=== PATIENT | male | born 1945 | race American Indian/Alaskan Native ===

== ENCOUNTER → 2018-06-28 | Outpatient (CLI) | payer MEDICARE ==
--- NOTE | 2018-06-28 20:59 | Ultrasound Report ---
FINAL REPORT PROCEDURE: US ABDOMEN COMPLETE TECHNIQUE: Real-time sonography in multiple planes of the abdomen was performed with image documentation. CPT 71438 HISTORY: THROMBOVYTOPENIA COMPARISON: No prior studies are available for comparison. FINDINGS: Liver: Normal size and echotexture with no evidence of cystic or solid mass lesions. Gallbladder: Well distended with normal outlines are normal wall thickness. A few small echogenic foci are noted in the gallbladder neck without any shadowing measuring above 5 millimeters.. There are no pericholecystic collections. Intrahepatic bile ducts: Normal. Extrahepatic bile ducts: Common duct is 5 millimeters in caliber. Pancreas: Visualized pancreatic head and body demonstrate normal echotexture. Aorta: Proximal abdominal aorta measures 1.7 centimeters in diameter.. IVC: Visualized portions appear normal. RIGHT kidney: Normal echotexture. No focal renal mass, calculus, or hydronephrosis. Length: 9 x 5 x 4cm. LEFT kidney: Normal echotexture. No focal renal mass, calculus, or hydronephrosis . Length: 9 x 4 x 3.5cm. Spleen: Normal size and echotexture. No focal lesions. Intraperitoneal fluid: None . Other: None . IMPRESSION: Small echogenic foci in the gallbladder neck are suspicious for calculi. There is no evidence of any cholecystitis. Otherwise negative study..
== END | disposition home or self-care (01) ==
LOC: US 11:36
PROVIDERS: ATTEND Internal Medicine Hematology & Oncology
DX: K82.8 Other specified diseases of gallbladder (principal); I25.10 Atherosclerotic heart disease of native coronary artery without angina pectoris; Z88.0 Allergy status to penicillin; Z88.7 Allergy status to serum and vaccine; Z91.018 Allergy to other foods; Z87.891 Personal history of nicotine dependence
CPT/HCPCS: 76700

== ENCOUNTER 2020-01-11 18:08 | Emergency (ER) | payer MEDICARE ==
--- NOTE | 2020-01-11 19:40 | Emergency Department Report ---
<SARITHA RODRIGUEZ - Last Filed: 01/12/20 02:01> ED Altered Mental Status HPI - General Stated Complaint: COMBATIVE/BEHAVIOR Time Seen by Provider: 01/11/20 19:04 Source: RN/MD - History of Present Illness Initial Comments: Patient is a 74-year-old male with a history of dementia who presents for combative behavior and altered mental status. EMS reported to nursing staff that the patient's and children called 911. They told EMS that the patient had become very combative and confused. The EMS sheet from Zachariah Garc[facility] of [facility] emergency service Med1 states that subject appeared to be "upset, agitated, confused." It also states that he made threats to harm others. There is no one with the patient upon entering exam room. I attempted to call patient's with the number provided in the chart and there was no answer. Patient is currently calm and cooperative. He does appear to be confused but unsure if this is patient's baseline. pt is currently on hospice with [facility]. He is a DNR. he has a hx of prostate CA, CHF, CAD. - Related Data Home Medications Medication Instructions Recorded Confirmed Last Taken Adult Low Dose Aspirin EC 81 mg PO DAILY 09/12/15 09/12/15 09/06/15 Digoxin [Digox] PO DAILY 09/12/15 09/12/15 09/10/15 Gabapentin [Neurontin] TID 09/12/15 09/12/15 09/11/15 Oxycodone HCl [Oxycontin 20mg ER] TID 09/12/15 09/12/15 09/10/15 Silodosin [Rapaflo] DAILY 09/12/15 09/12/15 09/11/15 Temazepam QHS 09/12/15 09/12/15 09/11/15 lisinopriL [Lisinopril] PO DAILY 09/12/15 09/12/15 09/10/15 Allergies Allergy/AdvReac Type Severity Reaction Status Date / Time penicillin Allergy Unknown Unverified 05/21/15 14:06 Tetanus Vaccines and Toxoid Allergy Unknown Unverified 05/21/15 14:06 [Tetanus Vaccines & Toxoid] MUSHROOMS Allergy Unknown Uncoded 05/21/15 14:07 ED Review of Systems Comment: Unobtainable due to pts medical conditions ED Past Medical Hx - Social History Smoking Status: Current Some Day Smoker - Medications Home Medications: Home Medications Medication Instructions Recorded Confirmed Last Taken Type Adult Low Dose Aspirin EC 81 mg PO DAILY 09/12/15 09/12/15 09/06/15 History Digoxin [Digox] PO DAILY 09/12/15 09/12/15 09/10/15 History Gabapentin [Neurontin] TID 09/12/15 09/12/15 09/11/15 History Oxycodone HCl [Oxycontin 20mg ER] TID 09/12/15 09/12/15 09/10/15 History Silodosin [Rapaflo] DAILY 09/12/15 09/12/15 09/11/15 History Temazepam QHS 09/12/15 09/12/15 09/11/15 History lisinopriL [Lisinopril] PO DAILY 09/12/15 09/12/15 09/10/15 History ED Physical Exam - General General appearance: alert, in no apparent distress - Head Head exam: Present: atraumatic, normocephalic - Eye Eye exam: Present: normal appearance, PERRL, EOMI - ENT ENT exam: Present: mucous membranes moist - Respiratory Respiratory exam: Present: normal lung sounds bilaterally, other (prior healed sternotomy scar). Absent: respiratory distress, wheezes, rales, rhonchi, stridor, chest wall tenderness, accessory muscle use, decreased breath sounds, prolonged expiratory - Cardiovascular Cardiovascular Exam: Present: regular rate, normal rhythm, normal heart sounds. Absent: systolic murmur, diastolic murmur, rubs, gallop - GI/Abdominal GI/Abdominal exam: Present: soft, normal bowel sounds. Absent: distended, tenderness, guarding, rebound, rigid - Neurological Exam Neurological exam: Present: other (alert to himself and his date of , otherwise not oriented, unsure of pts baseline, he does not appropriately answer questions) - Psychiatric Psychiatric exam: Present: normal affect, normal mood - Skin Skin exam: Present: warm, dry, intact - Lab Data Result diagrams: 01/11/20 19:26 01/11/20 19:26 01/11/20 23:07 V paced rhythm at 79 bpm no STEMI - Radiology Data Radiology results: report reviewed CT BRAIN: 01/11/2020 INDICATION / CLINICAL INFORMATION: AMS. COMPARISON: None available. FINDINGS: BRAIN/INTRACRANIAL STRUCTURES: Unenhanced CT images of the brain demonstrate no evidence of acute intracranial abnormality. Ventricles and sulci are prominent in size, consistent with diffuse cerebral atrophy. There is no evidence of acute ischemic injury, hemorrhage, or mass. There are no abnormal extra- axial fluid collections. EXTRACRANIAL STRUCTURES: Unremarkable. IMPRESSION: No acute abnormality. All CT scans at this location are performed using dose reduction to ALARA by means of automated exposure control. Signer Name: Juwan Braun MD Signed: 01/11/2020 9:07 PM Workstation Name: [id number] Transcribed By: ANA M Dictated By: Juwan Braun MD Electronically Authenticated By: Juwan Braun MD Signed Date/Time: 01/11/202106 DD/ 04 TD/TT: Chest single view INDICATION: Dyspnea IMPRESSION: Cardiomegaly with trace interstitial edema, no significant pleural effusion. Signer Name: Kirill Seals MD Signed: 01/11/2020 7:57 PM Workstation Name: [id number] Transcribed By: MICHELLE Dictated By: Kirill Seals MD Electronically Authenticated By: Kirill Seals MD Signed Date/Time: 01/11/201956 DD/ 56 TD/TT: - Medical Decision Making Patient is a 74-year-old male with a history of dementia who presents for combative behavior and altered mental status. EMS reported to nursing staff that the patient's and children called 911. They told EMS that the patient had become very combative and confused. The EMS sheet from Zachariah Garc[facility] of [facility] emergency service Med1 states that subject appeared to be "upset, agitated, confused." It also states that he made threats to harm others. There is no one with the patient upon entering exam room. I attempted to call patient's with the number provided in the chart and there was no answer. Patient is currently calm and cooperative. He does appear to be confused but u nsure if this is patient's baseline. pt is currently on hospice with [facility]. He is a DNR. he has a hx of prostate CA, CHF, CAD. Vitals are normal. EKG with V paced rhythm. Labs with mildly elevated AST, mildly elevated alk phos, mildly elevated bilirubin. According to previous records, patient has seen GI, he also drinks alcohol according to documentation. Blood alcohol, acetaminophen level, salicylate level, all within normal limits. UA is within normal limits. CT head with no acute process. Chest x-ray Cardiomegaly with trace interstitial edema, no significant pleural effusion. Mental health consult placed, possible candidate for admission to [facility] psych Case management consult placed, possible need for placement in a facility Patient does not have a medical emergency at this time preventing mental health or case management consultations or transfers to facilities as deemed appropriate ED Disposition Clinical Impression: Combative behavior, Confusion Dementia Qualifiers: Dementia type: unspecified type Dementia behavioral disturbance: without be havioral disturbance Qualified Code(s): F03.90 - Unspecified dementia without behavioral disturbance Disposition: - TO HOME OR SELFCARE Condition: Stable Referrals: NELI MCNAMARA JR, MD [Primary Care Provider] - 3-5 Days <KIEL MCGUIRE - Last Filed: 01/12/20 12:49> ED Review of Systems ROS: Stated complaint: COMBATIVE/BEHAVIOR Other details as noted in HPI ED Course Vital Signs 01/11/20 01/11/20 01/11/20 19:12 19:31 20:00 Temperature Pulse Rate 74 77 Respiratory 14 18 Rate Blood Pressure 148/87 148/87 123/56 Blood Pressure [Right] O2 Sat by Pulse 99 99 Oximetry 01/11/20 01/11/20 01/11/20 20:30 20:31 21:30 Temperature Pulse Rate 78 Respiratory 18 14 Rate Blood Pressure 123/56 123/56 Blood Pressure [Right] O2 Sat by Pulse 99 99 88 Oximetry 01/11/20 01/11/20 01/11/20 22:01 22:31 23:00 Temperature Pulse Rate 88 79 80 Respiratory 15 21 16 Rate Blood Pressure 123/56 123/56 150/84 Blood Pressure [Right] O2 Sat by Pulse 98 100 Oximetry 01/11/20 01/12/20 01/12/20 23:30 00:00 00:47 Temperature Pulse Rate 81 Respiratory 22 12 Rate Blood Pressure 150/84 127/94 122/94 Blood Pressure [Right] O2 Sat by Pulse Oximetry 01/12/20 01/12/20 01/12/20 01:00 01:30 01:35 Temperature 98 F Pulse Rate Respiratory 18 Rate Blood Pressure 144/80 144/80 Blood Pressure [Right] O2 Sat by Pulse 99 Oximetry 01/12/20 01/12/20 01/12/20 02:00 02:33 03:01 Temperature Pulse Rate Respiratory Rate Blood Pressure 135/70 144/80 127/74 Blood Pressure [Right] O2 Sat by Pulse 98 94 Oximetry 01/12/20 01/12/20 01/12/20 03:31 04:01 04:36 Temperature Pulse Rate Respiratory Rate Blood Pressure 127/74 137/69 137/69 Blood Pressure [Right] O2 Sat by Pulse 99 Oximetry 01/12/20 01/12/20 01/12/20 05:11 06:26 07:27 Temperature Pulse Rate 75 Respiratory 16 Rate Blood Pressure 137/69 137/69 Blood Pressure 148/92 [Right] O2 Sat by Pulse 100 Oximetry - Reevaluation(s) Reevaluation #1: 01/12/20 12:49 Patient has been accepted to our [place] psych unit at this time. - Lab Data Result diagrams: 01/11/20 19:26 01/11/20 19:26 Lab Results 01/11/20 01/11/20 01/11/20 Range/Units 19:26 19:26 19:26 WBC 5.2 (4.5-11.0) K/mm3 RBC 4.07 (3.65-5.03) M/mm3 Hgb 11.6 L (11.8-15.2) gm/dl Hct 35.3 L (35.5-45.6) % MCV 87 (84-94) fl MCH 29 (28-32) pg MCHC 33 (32-34) % RDW 16.8 H (13.2-15.2) % Plt Count 123 L (140-440) K/mm3 [place] % (Auto) Pressurised Container Filler Add Manual Diff Complete Total Counted 100 Seg Neuts % (Manual) 57.0 (40.0-70.0) % Band Neutrophils % 0 % Lymphocytes % (Manual) 23.0 (13.4-35.0) % Reactive Lymphs % (Man) 0 % Monocytes % (Manual) 17.0 H (0.0-7.3) % Eosinophils % (Manual) 2.0 (0.0-4.3) % Basophils % (Manual) 1.0 (0.0-1.8) % Metamyelocytes % 0 % Myelocytes % 0 % Promyelocytes % 0 % Blast Cells % 0 % Nucleated RBC % Not Reportable Seg Neutrophils # Man 3.0 (1.8-7.7) K/mm3 Band Neutrophils # 0.0 K/mm3 Lymphocytes # (Manual) 1.2 (1.2-5.4) K/mm3 Abs React Lymphs (Man) 0.0 K/mm3 Monocytes # (Manual) 0.9 H (0.0-0.8) K/mm3 Eosinophils # (Manual) 0.1 (0.0-0.4) K/mm3 Basophils # (Manual) 0.1 (0.0-0.1) K/mm3 Metamyelocytes # 0.0 K/mm3 Myelocytes # 0.0 K/mm3 Promyelocytes # 0.0 K/mm3 Blast Cells # 0.0 K/mm3 WBC Morphology Not Reportable Hypersegmented Neuts Not Reportable Hyposegmented Neuts Not Reportable Hypogranular Neuts Not Reportable Smudge Cells Not Reportable Toxic Granulation Not Reportable Toxic Vacuolation Not Reportable Dohle Bodies Not Reportable Pelger-Huet Anomaly Not Reportable Mohini Rods Not Reportable Platelet Estimate Not Reportable Clumped Platelets Not Reportable Plt Clumps, EDTA Not Reportable Large Platelets Not Reportable Giant Platelets Not Reportable Platelet Satelliting Not Reportable Plt Morphology Comment Not Reportable RBC Morphology Normal Dimorphic RBCs Not Reportable Polychromasia Not Reportable Hypochromasia Not Reportable Poikilocytosis Not Reportable Anisocytosis Not Reportable Microcytosis Not Reportable Macrocytosis Not Reportable Spherocytes Not Reportable Pappenheimer Bodies Not Reportable Sickle Cells Not Reportable Target Cells Not Reportable Tear Drop Cells Not Reportable Ovalocytes Not Reportable Helmet Cells Not Reportable [place] Bodies Not Reportable Rosenberg Rings Not Reportable Waterfall Cells Not Reportable Bite Cells Not Reportable Crenated Cell Not Reportable Elliptocytes Not Reportable Acanthocytes (Spur) Not Reportable Rouleaux Not Reportable Hemoglobin C Crystals Not Reportable Schistocytes Not Reportable Malaria parasites Not Reportable Antony Bodies Not Reportable Hem Pathologist Commnt No Sodium 137 (137-145) mmol/L Potassium 4.7 (3.6-5.0) mmol/L Chloride 97.9 L (98-107) mmol/L Carbon Dioxide 25 (22-30) mmol/L Anion Gap 19 mmol/L BUN 22 H (9-20) mg/dL Creatinine 1.1 (0.8-1.5) mg/dL Estimated GFR > 60 ml/min BUN/Creatinine Ratio 20 % Glucose 111 H (75-100) mg/dL Calcium 9.8 (8.4-10.2) mg/dL Phosphorus 3.20 (2.5-4.5) mg/dL Magnesium 1.90 (1.7-2.3) mg/dL Total Bilirubin 1.40 H (0.1-1.2) mg/dL AST 54 H (5-40) units/L ALT 38 (7-56) units/L Alkaline Phosphatase 201 H (35-129) units/L Ammonia 31.0 (25-60) umol/L Total Creatine Kinase 155 (55-170) units/L Troponin T (0.00-0.029) ng/mL Total Protein 9.5 H (6.3-8.2) g/dL Albumin 4.1 (3.9-5) g/dL Albumin/Globulin Ratio 0.8 % Urine Color (Yellow) Urine Turbidity (Clear) Urine pH (5.0-7.0) Ur Specific [place] (1.003-1.030) Urine Protein (Negative) mg/dL Urine Glucose (UA) (Negative) mg/dL Urine Ketones (Negative) mg/dL Urine Blood (Negative) Urine Nitrite (Negative) Urine Bilirubin (Negative) Urine Urobilinogen (<2.0) mg/dL Ur Leukocyte Esterase (Negative) Urine WBC (Auto) (0.0-6.0) /HPF Urine RBC (Auto) (0.0-6.0) /HPF U Epithel Cells (Auto) (0-13.0) /HPF Urine Mucus /HPF Salicylates (2.8-20.0) mg/dL Acetaminophen (10.0-30.0) ug/mL Plasma/Serum Alcohol (0-0.07) % 01/11/20 01/11/20 01/11/20 Range/Units 19:26 20:19 20:19 WBC (4.5-11.0) K/mm3 RBC (3.65-5.03) M/mm3 Hgb (11.8-15.2) gm/dl Hct (35.5-45.6) % MCV (84-94) fl MCH (28-32) pg MCHC (32-34) % RDW (13.2-15.2) % Plt Count (140-440) K/mm3 [place] % (Auto) Add Manual Diff Total Counted Seg Neuts % (Manual) (40.0-70.0) % Band Neutrophils % % Lymphocytes % (Manual) (13.4-35.0) % Reactive Lymphs % (Man) % Monocytes % (Manual) (0.0-7.3) % Eosinophils % (Manual) (0.0-4.3) % Basophils % (Manual) (0.0-1.8) % Metamyelocytes % % Myelocytes % % Promyelocytes % % Blast Cells % % Nucleated RBC % Seg Neutrophils # Man (1.8-7.7) K/mm3 Band Neutrophils # K/mm3 Lymphocytes # (Manual) (1.2-5.4) K/mm3 Abs React Lymphs (Man) K/mm3 Monocytes # (Manual) (0.0-0.8) K/mm3 Eosinophils # (Manual) (0.0-0.4) K/mm3 Basophils # (Manual) (0.0-0.1) K/mm3 Metamyelocytes # K/mm3 Myelocytes # K/mm3 Promyelocytes # K/mm3 Blast Cells # K/mm3 WBC Morphology Hypersegmented Neuts Hyposegmented Neuts Hypogranular Neuts Smudge Cells Toxic Granulation Toxic Vacuolation Dohle Bodies Pelger-Huet Anomaly Mohini Rods Platelet Estimate Clumped Platelets Plt Clumps, EDTA Large Platelets Giant Platelets Platelet Satelliting Plt Morphology Comment RBC Morphology Dimorphic RBCs Polychromasia Hypochromasia Poikilocytosis Anisocytosis Microcytosis Macrocytosis Spherocytes Pappenheimer Bodies Sickle Cells Target Cells Tear Drop Cells Ovalocytes Helmet Cells [place] Bodies Rosenberg Rings Waterfall Cells Bite Cells Crenated Cell Elliptocytes Acanthocytes (Spur) Rouleaux Hemoglobin C Crystals Schistocytes Malaria parasites Antony Bodies Hem Pathologist Commnt Sodium (137-145) mmol/L Potassium (3.6-5.0) mmol/L Chloride (98-107) mmol/L Carbon Dioxide (22-30) mmol/L Anion Gap mmol/L BUN (9-20) mg/dL Creatinine (0.8-1.5) mg/dL Estimated GFR ml/min BUN/Creatinine Ratio % Glucose (75-100) mg/dL Calcium (8.4-10.2) mg/dL Phosphorus (2.5-4.5) mg/dL Magnesium (1.7-2.3) mg/dL Total Bilirubin (0.1-1.2) mg/dL AST (5-40) units/L ALT (7-56) units/L Alkaline Phosphatase (35-129) units/L Ammonia (25-60) umol/L Total Creatine Kinase (55-170) units/L Troponin T < 0.010 (0.00-0.029) ng/mL Total Protein (6.3-8.2) g/dL Albumin (3.9-5) g/dL Albumin/Globulin Ratio % Urine Color (Yellow) Urine Turbidity (Clear) Urine pH (5.0-7.0) Ur Specific [place] (1.003-1.030) Urine Protein (Negative) mg/dL Urine Glucose (UA) (Negative) mg/dL Urine Ketones (Negative) mg/dL Urine Blood (Negative) Urine Nitrite (Negative) Urine Bilirubin (Negative) Urine Urobilinogen (<2.0) mg/dL Ur Leukocyte Esterase (Negative) Urine WBC (Auto) (0.0-6.0) /HPF Urine RBC (Auto) (0.0-6.0) /HPF U Epithel Cells (Auto) (0-13.0) /HPF Urine Mucus /HPF Salicylates < 0.3 L (2.8-20.0) mg/dL Acetaminophen < 5.0 L (10.0-30.0) ug/mL Plasma/Serum Alcohol (0-0.07) % 01/11/20 01/12/20 Range/Units 20:19 00:01 WBC (4.5-11.0) K/mm3 RBC (3.65-5.03) M/mm3 Hgb (11.8-15.2) gm/dl Hct (35.5-45.6) % MCV (84-94) fl MCH (28-32) pg MCHC (32-34) % RDW (13.2-15.2) % Plt Count (140-440) K/mm3 [place] % (Auto) Add Manual Diff Total Counted Seg Neuts % (Manual) (40.0-70.0) % Band Neutrophils % % Lymphocytes % (Manual) (13.4-35.0) % Reactive Lymphs % (Man) % Monocytes % (Manual) (0.0-7.3) % Eosinophils % (Manual) (0.0-4.3) % Basophils % (Manual) (0.0-1.8) % Metamyelocytes % % Myelocytes % % Promyelocytes % % Blast Cells % % Nucleated RBC % Seg Neutrophils # Man (1.8-7.7) K/mm3 Band Neutrophils # K/mm3 Lymphocytes # (Manual) (1.2-5.4) K/mm3 Abs React Lymphs (Man) K/mm3 Monocytes # (Manual) (0.0-0.8) K/mm3 Eosinophils # (Manual) (0.0-0.4) K/mm3 Basophils # (Manual) (0.0-0.1) K/mm3 Metamyelocytes # K/mm3 Myelocytes # K/mm3 Promyelocytes # K/mm3 Blast Cells # K/mm3 WBC Morphology Hypersegmented Neuts Hyposegmented Neuts Hypogranular Neuts Smudge Cells Toxic Granulation Toxic Vacuolation Dohle Bodies Pelger-Huet Anomaly Mohini Rods Platelet Estimate Clumped Platelets Plt Clumps, EDTA Large Platelets Giant Platelets Platelet Satelliting Plt Morphology Comment RBC Morphology Dimorphic RBCs Polychromasia Hypochromasia Poikilocytosis Anisocytosis Microcytosis Macrocytosis Spherocytes Pappenheimer Bodies Sickle Cells Target Cells Tear Drop Cells Ovalocytes Helmet Cells [place] Bodies Rosenberg Rings Karolyn Cells Bite Cells Crenated Cell Elliptocytes Acanthocytes (Spur) Rouleaux Hemoglobin C Crystals Schistocytes Malaria parasites Antony Bodies Hem Pathologist Commnt Sodium (137-145) mmol/L Potassium (3.6-5.0) mmol/L Chloride (98-107) mmol/L Carbon Dioxide (22-30) mmol/L Anion Gap mmol/L BUN (9-20) mg/dL Creatinine (0.8-1.5) mg/dL Estimated GFR ml/min BUN/Creatinine Ratio % Glucose (75-100) mg/dL Calcium (8.4-10.2) mg/dL Phosphorus (2.5-4.5) mg/dL Magnesium (1.7-2.3) mg/dL Total Bilirubin (0.1-1.2) mg/dL AST (5-40) units/L ALT (7-56) units/L Alkaline Phosphatase (35-129) units/L Ammonia (25-60) umol/L Total Creatine Kinase (55-170) units/L Troponin T (0.00-0.029) ng/mL Total Protein (6.3-8.2) g/dL Albumin (3.9-5) g/dL Albumin/Globulin Ratio % Urine Color Yellow (Yellow) Urine Turbidity Clear (Clear) Urine pH 7.0 (5.0-7.0) Ur Specific [place] 1.013 (1.003-1.030) Urine Protein <15 mg/dl (Negative) mg/dL Urine Glucose (UA) Neg (Negative) mg/dL Urine Ketones Neg (Negative) mg/dL Urine Blood Sm (Negative) Urine Nitrite Neg (Negative) Urine Bilirubin Neg (Negative) Urine Urobilinogen 2.0 (<2.0) mg/dL Ur Leukocyte Esterase Neg (Negative) Urine WBC (Auto) 1.0 (0.0-6.0) /HPF Urine RBC (Auto) 90.0 (0.0-6.0) /HPF U Epithel Cells (Auto) 1.0 (0-13.0) /HPF Urine Mucus Few /HPF Salicylates (2.8-20.0) mg/dL Acetaminophen (10.0-30.0) ug/mL Plasma/Serum Alcohol < 0.01 (0-0.07) % Critical care attestation.: If time is entered above; I have spent that time in minutes in the direct care of this critically ill patient, excluding procedure time. ED Disposition Is pt being admited?: No Does the pt Need Aspirin: No Time of Disposition: 12:49
[2020-01-11 19:42] LABS: Hematocrit 35.3 % (35.5-45.6); Hemoglobin 11.6 gm/dl (11.8-15.2); Mean Corpuscular HGB Conc 33 % (32-34); Mean Corpuscular Volume 87 fl (84-94); Platelet Count 123 K/mm3 (140-440); Red Blood Count 4.07 M/mm3 (3.65-5.03); Red Cell Distribution Width 16.8 % (13.2-15.2)
[2020-01-11 19:53] LABS: Alanine Aminotransferase 38 units/L (7-56); Albumin 4.1 g/dL (3.9-5); BUN/Creatinine Ratio 20; Blood Urea Nitrogen 22 mg/dL (9-20); Calcium 9.8 mg/dL (8.4-10.2); Hemolysis Index 0
--- NOTE | 2020-01-11 20:01 | XRay Report ---
Chest single view INDICATION: Dyspnea IMPRESSION: Cardiomegaly with trace interstitial edema, no significant pleural effusion. Signer Name: Kirill Seals MD Signed: 01/11/2020 7:57 PM Workstation Name: [id number]
[2020-01-11 20:26] LABS: RBC Morphology Normal; Total Cells Counted 100
--- NOTE | 2020-01-11 21:11 | Cat Scan Report ---
CT BRAIN: 01/11/2020 INDICATION / CLINICAL INFORMATION: AMS. COMPARISON: None available. FINDINGS: BRAIN/INTRACRANIAL STRUCTURES: Unenhanced CT images of the brain demonstrate no evidence of acute int racranial abnormality. Ventricles and sulci are prominent in size, consistent with diffuse cerebral atrophy. There is no evidence of acute ischemic injury, hemorrhage, or mass. There are no abnormal extra-axial fluid collections. EXTRACRANIAL STRUCTURES: Unremarkable. IMPRESSION: No acute abnormality. All CT scans at this location are performed using dose reduction to ALARA by means of automated expos ure control. Signer Name: Juwan Braun MD Signed: 01/11/2020 9:07 PM Workstation Name: [id number]
[2020-01-12 00:18] LABS: Bilirubin,Urine NEG (Negative); Blood,Urine SM (Negative); Color,Urine Yellow (Yellow); Mucus,Urine FEW /HPF; Protein,Urine <15 mg/dL mg/dL (Negative)
[2020-01-12] MEDS ORDERED: MELATONIN 5 MG TAB PO PRN (01:55)
[2020-01-12] MEDS ORDERED: LORazepam 2 MG/ML VIAL IM ONE (02:09)
[2020-01-12] MEDS ORDERED: LORazepam 2 MG/ML VIAL IM PRN (08:49)
[2020-01-12 08:54] VITALS: BP 137/69
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
== END 2020-01-12 14:59 | disposition home or self-care (01) ==
LOC: ED 18:08
DX: R41.0 Disorientation, unspecified (principal); F03.90 Unspecified dementia, unspecified severity, without behavioral disturbance, psychotic disturbance, mood disturbance, and anxiety; F17.200 Nicotine dependence, unspecified, uncomplicated
CPT/HCPCS: 36415; 70450; 71045; 80053; 81001; 82140; 82550; 83735; 84100; 84484; 85007; 85025; 93005; 93010; 96372; 99285; J2060; 80320; G0480